=== PATIENT | female | born 1985 | race African-American/Black ===

== ENCOUNTER 2016-08-30 00:33 | Emergency (ER) | payer MEDICAID ==
[~2016-08-30] VITALS: Ht 160 cm; Wt 94.0 kg
[~2016-08-30 00:33] MED LIST: EC-N500T7 PO; METR-1 PO
[2016-08-30 00:36] VITALS: BP 139/81; PULSE 89; RESP 16; TEMP 98.4; O2SAT 100
== END 2016-08-30 01:37 | disposition left against medical advice (07) ==
LOC: NED 00:33
DX: R51 Headache (principal); W19.XXXA Unspecified fall, initial encounter
CPT/HCPCS: 99281

== ENCOUNTER 2016-09-26 03:26 | Emergency (ER) | payer MEDICAID ==
[~2016-09-26] VITALS: Ht 157.5 cm; Wt 94.0 kg
[2016-09-26 03:28] VITALS: BP 160/94; PULSE 85; RESP 16; TEMP 98.6; O2SAT 96
[2016-09-26] MEDS ORDERED: SODIUM CHLORIDE 0.9% FLUSH 5 ML FLUSH IVF PRN (04:15)
[2016-09-26 04:30] VITALS: O2SAT 96
[2016-09-26] MEDS: RESP: ALBUTEROL 2.5 MG/IPRATROPIUM 0.5 MG NEB (SCH) INH (04:30)
--- NOTE | 2016-09-26 04:53 | RADRPT ---
EXAM DATE/TIME: 09/26/2016 04:28 [facility] COMPARISON: CHEST PA & LAT, July 04, 2014, 12:55. INDICATIONS : Pt having shortness of breath. MEDICAL HISTORY : None. SURGICAL HISTORY : None. ENCOUNTER: Initial ACUITY: 1 day PAIN SCORE: 8/10 LOCATION: Bilateral chest FINDINGS: PA and lateral views of the chest demonstrate the lungs to be symmetrically aerated without evidence of mass, infiltrate or effusion. The cardiomediastinal contours are unremarkable. Osseous structure s are intact. CONCLUSION: No evidence of acute cardiopulmonary disease. Enmanuel Cortes MD on September 26, 2016 at 4:51 Board Certified Radiologist. This report was verified electronically.
--- NOTE | 2016-09-26 04:53 | RADRPT ---
EXAM DATE/TIME: 09/26/2016 04:29 [facility] COMPARISON: No previous studies available for comparison. INDICATIONS : Left leg pain. MEDICAL HISTORY : Hypertension. Migraine. Asthma. Diabetes. SURGICAL HISTORY : Appendectomy. Breast reduction. ENCOUNTER: Initial ACUITY: 1 day PAIN SCORE: 1/10 LOCATION: Left legs. TECHNIQUE: Venous ultrasound of the leg was performed from the inguinal ligament to the proximal calf. Real-rod e, color Doppler and spectral tracing, compression and augmentation techniques were used. FINDINGS: There is normal compressibility of the deep venous system from the inguinal region to the proximal ca lf. No echogenic clot is seen in the lumen of the common femoral, femoral, popliteal, and posterior tibial veins. There is a normal response of the venous system to proximal and distal augmentation an d respiration. CONCLUSION: No DVT of the left lower extremity. Enmanuel Cortes MD on September 26, 2016 at 4:52 Board Certified Radiologist. This report was verified electronically.
[2016-09-26 05:05] LABS: BASOPHIL # 0.1 TH/MM3 (0-0.2); BASOPHIL % 0.7 % (0.0-2.0); EOSINOPHIL # 0.4 TH/MM3 (0-0.4); EOSINOPHIL % 3.5 % (0.0-4.0); HEMATOCRIT 35.2 % (35.0-46.0); HEMO FLAGS DIFF FINAL; LYMPHOCYTE # 2.6 TH/MM3 (1.0-4.8); MEAN CELL VOLUME 84.4 FL (80.0-100.0); MEAN CORPUSCULAR HEMOGLOBIN 28.3 PG (27.0-34.0); MEAN CORPUSCULAR HGB CONC 33.6 % (32.0-36.0); MONO % 4.6 % (0.0-8.0); NEUT % 69.2 % (16.0-70.0); PLATELET COUNT 276 TH/MM3 (150-450); RED BLOOD COUNT 4.17 MIL/MM3 (4.00-5.30); WHITE BLOOD COUNT 11.6 TH/MM3 (4.0-11.0)
--- NOTE | 2016-09-26 05:05 | PD ---
HPI Chief Complaint: Cold / Flu Symptoms Time Seen by Provider: 04:55 Travel History International Travel<30 days: No Contact w/Intl Traveler<30days: No Traveled to known affect area: No History of Present Illness HPI 31-year-old black female presents to emergency department with a 2-3 day history of increasing shortness of breath and wheezing. She also states that she's noticed some increasing dyspnea on exertion and swelling in her left leg. She has had some subjective fever and chills at home, ear pain, sore throat, cough, no sputum production. Positive wheezing and shortness of breath. No nausea vomiting. No bowel pain or diarrhea. No urinary symptoms. PFSH Past Medical History Asthma: Yes Anxiety: Yes Cardiovascular Problems: Yes (HTN) Diabetes: Yes (CONTROLED WITH DIET) Diminished Hearing: No Hypertension: Yes Immunizations Current: Yes Migraines: Yes ?: Unknown LMP: 08/12/16 : 1 Para: 1 Miscarriage: 0 : 0 Past Surgical History Appendectomy: Yes Other Surgery: Yes (BREAST REDUCTION) Social History Alcohol Use: Yes (occasionally.) Tobacco Use: Yes (2-3 cigs.) Substance Use: No Allergies-Medications (Allergen,Severity, Reaction): Coded Allergies: No Known Allergies (Unverified , 09/26/16) Reported Meds & Prescriptions Reported Meds & Active Scripts Active Proventil Hfa 6.7 GM Inh (Albuterol Sulfate) 90 Mcg/Act Aer 2 Puff INH Q4-6H PRN Deltasone (Prednisone) 20 Mg Tab 20 Mg PO TID Zithromax (Azithromycin) 250 Mg Tab 250 Mg PO DIRECTED Take 2 tabs (500 mg) on day 1 then 1 tab daily x 4 days. Review of Systems General / Constitutional: Positive: Fever, Chills Eyes: No: Blurred Vision, Photophobia HENT: Positive: Headaches, Sore Throat, No: Neck Pain Cardiovascular: Positive: Chest Pain or Discomfort, Palpitations Respiratory: Positive: Cough, Shortness of Breath, Wheezing, Sneezing, Night Sweats Gastrointestinal: Positive: Vomiting, Diarrhea, Loss of Appetite Genitourinary: No: Dysuria, Nocturia Musculoskeletal: Positive: Arthralgias, Limited ROM, Edema Skin: No Rash Physical Exam Narrative GENERAL: Well-developed, well-nourished in no acute distress. Nontoxic appearing. HEAD: Normocephalic, atraumatic. EYES: Pupils equal round and reactive. Extraocular motions intact. No scleral icterus. No injection or drainage. ENT: TMs clear without erythema. The external auditory canals clear. Nose: clear . Posterior pharynx is pink and moist. No tonsillar edema or exudate. Uvula midline. Airway patent. NECK: Trachea midline.Supple, nontender, moves head freely. No central bony tenderness or spasm. CARDIOVASCULAR: Regular rate and rhythm without murmurs, gallops, or rubs. RESPIRATORY: Scattered rhonchi with decreased breath sounds and extra wheezes. GASTROINTESTINAL: Abdomen soft, non-tender, nondistended. No hepato-splenomegaly , or palpable masses. No guarding. EXTREMITIES: No clubbing, cyanosis, or edema. No joint tenderness, effusion, or edema noted. Patient complains of pain in the left calf but no Homans sign. There is no erythema, warmth or swelling compared to the opposite side. She complains of pain on the lateral aspect of the thigh and up into the hip. No medial pain. BACK: Nontender without deformity or crepitance. No flank tenderness. Data Data Last Documented VS Vital Signs Date Time Temp Pulse Resp B/P Pulse Ox O2 Delivery O2 Flow Rate FiO2 09/26/16 04:30 96 21 09/26/16 03:28 98.6 85 16 160/94 Room Air Orders Chest, Pa & Lat (09/26/16 04:03) Iv Access Insert/Monitor (09/26/16 04:03) Oximetry (09/26/16 04:03) Albuterol-Ipratropium Neb (Duoneb Neb) (09/26/16 04:15) Sodium Chloride 0.9% Flush (Ns Flush) (09/26/16 04:15) Us Leg Venous Doppler (09/26/16 04:03) Electrocardiogram (09/26/16 04:03) Complete Blood Count With Diff (09/26/16 04:03) Comprehensive Metabolic Panel (09/26/16 04:03) Prothrombin Time / Inr (Pt) (09/26/16 04:03) Act Partial Throm Time (Ptt) (09/26/16 04:03) Ed Urine Pregnancytest Poc (09/26/16 04:03) Methylprednisolone So Succ Inj (Solumedr (09/26/16 05:15) Azithromycin (Zithromax) (09/26/16 05:15) Labs Laboratory Tests Test 09/26/16 04:50 White Blood Count 11.6 TH/MM3 Red Blood Count 4.17 MIL/MM3 Hemoglobin 11.8 GM/DL Hematocrit 35.2 % Mean Corpuscular Volume 84.4 FL Mean Corpuscular Hemoglobin 28.3 PG Mean Corpuscular Hemoglobin 33.6 % Concent Red Cell Distribution Width 14.0 % Platelet Count 276 TH/MM3 Mean Platelet Volume 8.5 FL Neutrophils (%) (Auto) 69.2 % Lymphocytes (%) (Auto) 22.0 % Monocytes (%) (Auto) 4.6 % Eosinophils (%) (Auto) 3.5 % Basophils (%) (Auto) 0.7 % Neutrophils # (Auto) 8.0 TH/MM3 Lymphocytes # (Auto) 2.6 TH/MM3 Monocytes # (Auto) 0.5 TH/MM3 Eosinophils # (Auto) 0.4 TH/MM3 Basophils # (Auto) 0.1 TH/MM3 CBC Comment DIFF FINAL Differential Comment Prothrombin Time 10.3 SEC Prothromb Time International 0.9 RATIO Ratio Activated Partial 29.6 SEC Thromboplast Time Sodium Level 138 MEQ/L Potassium Level 3.5 MEQ/L Chloride Level 104 MEQ/L Carbon Dioxide Level 26.6 MEQ/L Anion Gap 7 MEQ/L Blood Urea Nitrogen 8 MG/DL Creatinine 0.82 MG/DL Estimat Glomerular Filtration 99 ML/MIN Rate Random Glucose 95 MG/DL Calcium Level 8.7 MG/DL Total Bilirubin 0.2 MG/DL Aspartate Amino Transf 12 U/L (AST/SGOT) Alanine Aminotransferase 12 U/L (ALT/SGPT) Alkaline Phosphatase 83 U/L Total Protein 8.0 GM/DL Albumin 3.5 GM/DL MDM Medical Decision Making Medical Screen Exam Complete: Yes Emergency Medical Condition: Yes Interpretation(s) CBC & BMP Diagram 09/26/16 04:50 Chest x-ray: No acute bony process. EKG: Sinus rhythm with a ventricular rate of 85. Occasional supraventricular complex. No abnormal ST-T wave changes. Ultrasound left lower extremity for DVT: Negative for DVT Differential Diagnosis MDM: High Differential diagnoses: Pneumonia, bronchitis, URI, asthma, RAD, legionnaire's disease, SARS, ARDS, influenza, bronchiolitis, RSV,PE,CHF Narrative Course X-ray is negative. Ultrasound: negative. IV access is obtained. Patient is given 2 DuoNeb times. She is reexamined and sounds significantly improved. She is feeling much improved. This is bronchitis with RAD, left leg pain Diagnosis Primary Impression: bronchitis with RAD Additional Impression: Left leg pain Patient Instructions: General Instructions Additional Instructions: Rest. Increase fluids. Tylenol and Advil. Robitussin-DM. Z-Alan, prednisone, and albuterol. Followup with your Dr. in one week. Return to the ER for any problems. Med/Other Pt SpecificInfo: Prescription(s) given Scripts Albuterol 6.7 GM Inh (Proventil Hfa 6.7 GM Inh)90 Mcg/Act Aer2 Puff INH Q4-6H PRN (SHORTNESS OF BREATH) #1 INHALER Prov:Pavithra Maya MD 09/26/16 Prednisone (Deltasone)20 Mg Tab20 Mg PO TID #15 TAB Prov:Pavithra Maya MD 09/26/16 Azithromycin (Zithromax)250 Mg [id number] Mg PO DIRECTED #6 TAB Take 2 tabs (500 mg) on day 1 then 1 tab daily x 4 days. Prov:Pavithra Maya MD 09/26/16 Disposition: 01 DISCHARGE HOME Condition: Stable Vel Barriga Sep 26, 2016 05:05
[2016-09-26] MEDS ORDERED: ZITH250T PO (05:07)
[2016-09-26] MEDS ORDERED: ALBU6.7H INH (05:07)
[2016-09-26] MEDS ORDERED: PRED-503 PO (05:07)
[2016-09-26] MEDS ORDERED: methylPREDNISolone SOD SUCC 125 MG/2 ML VIAL IVP ONE (05:15)
[2016-09-26] MEDS ORDERED: AZITHROMYCIN 250 MG TAB PO ONE (05:15)
[2016-09-26 05:18] LABS: APTT (PATIENT) 29.6 SEC (24.3-30.1); INTERNATIONAL NORMALIZED RATIO 0.9 RATIO; PROTHROMBIN TIME - PATIENT 10.3 SEC (9.8-11.6)
[2016-09-26 05:27] LABS: ALT (GPT) 12 U/L (10-53); ANION GAP 7 MEQ/L (5-15); AST (GOT) 12 U/L (15-37); BICARBONATE 26.6 MEQ/L (21.0-32.0); BLOOD UREA NITROGEN 8 MG/DL (7-18); CHLORIDE 104 MEQ/L (98-107); GLOMERULAR FILTRATION RATE 99 ML/MIN (>89); POTASSIUM 3.5 MEQ/L (3.5-5.1); SODIUM (NA) 138 MEQ/L (136-145)
[2016-09-26 05:29] LABS: ALKALINE PHOSPHATASE 83 U/L (45-117); TOTAL BILIRUBIN ADULT 0.2 MG/DL (0.2-1.0)
--- NOTE | 2016-09-27 12:32 | EKG ---
Date Performed: 09/26/2016 Time Performed: 04:50:48 PTAGE: 31 years EKG: Sinus rhythm WITH OCCASIONAL SUPRAVENTRICULAR PREMATURE COMPLEXES NONSPECIFIC T-WAVE ABNORMALITY Compared to prio r tracing no significant change BORDERLINE ECG PREVIOUS TRACING : 04/16/2016 19.25 DOCTOR: Herrera Street Interpretating Date/Time 09/27/2016 12:31:06
== END 2016-09-26 06:42 | disposition home or self-care (01) ==
LOC: NEPB 03:26
DX: J45.909 Unspecified asthma, uncomplicated (principal); F17.210 Nicotine dependence, cigarettes, uncomplicated; M79.605 Pain in left leg
CPT/HCPCS: 71020; 80053; 84703; 85025; 85610; 85730; 93005; 93971; 94640; 94664; 96374; 99284; J2930

== ENCOUNTER 2016-12-04 01:06 | Emergency (ER) | payer MEDICAID ==
[~2016-12-04] VITALS: Ht 160 cm; Wt 94.0 kg
[~2016-12-04 01:06] MED LIST changes: +ALBU6.7H INH; -EC-N500T7 PO; -METR-1 PO; +PRED-503 PO; +ZITH250T PO
[2016-12-04 01:17] VITALS: BP 138/86; PULSE 76; RESP 14; TEMP 98.3; O2SAT 100
== END 2016-12-04 03:28 | disposition left against medical advice (07) ==
LOC: NEPK 01:06
DX: R51 Headache (principal)
CPT/HCPCS: 99281

== ENCOUNTER 2016-12-04 22:08 | Emergency (ER) | payer MEDICAID ==
[~2016-12-04] VITALS: Ht 162.6 cm; Wt 93.0 kg
[2016-12-04 22:10] VITALS: BP 141/85; PULSE 81; RESP 16; TEMP 97.8; O2SAT 100
[2016-12-04] MEDS ORDERED: ONDANSETRON ODT 4 MG TAB PO ONE (23:00)
--- NOTE | 2016-12-04 23:25 | PD ---
HPI Chief Complaint: Related Problem Time Seen by Provider: 22:27 Travel History International Travel<30 days: No Contact w/Intl Traveler<30days: No Traveled to known affect area: No History of Present Illness HPI 31-year-old female 3 para 1 (1 prior ) arrives requesting 48 hour repeat beta hCG. She had vaginal bleeding prompting ER visit in [place]. She does not know what the beta hCG was however reports the doctor told her she was approximately 5 weeks . She's had vaginal bleeding or discharge since. She has no urinary complaint. No nausea vomiting diarrhea or fever. She does report gassy abdominal pain, epigastric location which tends to migrate to pelvic distribution. PFSH Past Medical History Asthma: Yes Anxiety: Yes Cardiovascular Problems: Yes (HTN) Diabetes: Yes (CONTROLED WITH DIET) Patient Takes Glucophage: No Diminished Hearing: No Hypertension: Yes Immunizations Current: Yes Migraines: Yes ?: LMP: 3-24-17 : 1 Para: 1 Miscarriage: 0 : 0 Past Surgical History Appendectomy: Yes Other Surgery: Yes (BREAST REDUCTION) Social History Alcohol Use: Yes (occasionally.) Tobacco Use: Yes (2-3 cigs.) Substance Use: No Allergies-Medications (Allergen,Severity, Reaction): Coded Allergies: No Known Allergies (Unverified , 12/04/16) Reported Meds & Prescriptions Reported Meds & Active Scripts Active Proventil Hfa 6.7 GM Inh (Albuterol Sulfate) 90 Mcg/Act Aer 2 Puff INH Q4-6H PRN Deltasone (Prednisone) 20 Mg Tab 20 Mg PO TID Review of Systems Except as stated in HPI: all other systems reviewed are Neg General / Constitutional: No: Fever, Chills Genitourinary: No: Discharge, Vaginal Bleeding Physical Exam Narrative GENERAL: 31 yo F, WNWD, NAD SKIN: Warm and dry. HEAD: Atraumatic. Normocephalic. EYES: Pupils equal and round. No scleral icterus. No injection or drainage. ENT: No nasal bleeding or discharge. Mucous membranes pink and moist. NECK: Trachea midline. No JVD. CARDIOVASCULAR: Regular rate and rhythm. RESPIRATORY: No accessory muscle use. Clear to auscultation. Breath sounds equal bilaterally. GASTROINTESTINAL: Abdomen soft, non-tender, nondistended. Hepatic and splenic margins not palpable. MUSCULOSKELETAL: Extremities without clubbing, cyanosis, or edema. No obvious deformities. NEUROLOGICAL: Awake and alert. No obvious cranial nerve deficits. Motor grossly within normal limits. Five out of 5 muscle strength in the arms and legs. Normal speech. PSYCHIATRIC: Appropriate mood and affect; insight and judgment normal. Data Data Last Documented VS Vital Signs Date Time Temp Pulse Resp B/P Pulse Ox O2 Delivery O2 Flow Rate FiO2 12/04/16 22:24 18 12/04/16 22:10 97.8 81 141/85 100 Room Air VS reviewed Orders Beta Hcg (Quant/Titer) (12/04/16 22:32) Ed Urine Pregnancytest Poc (12/04/16 22:32) Ed Poc Ultrasound (12/04/16 22:32) Ondansetron Odt (Zofran Odt) (12/04/16 23:00) Us Pelvis (Ques Pr/Ect)W Trans (12/05/16 ) Labs Laboratory Tests Test 12/04/16 22:45 Human Chorionic Gonadotropin, 1784 MIU/ML Quant MDM Medical Decision Making Medical Screen Exam Complete: Yes Emergency Medical Condition: Yes Differential Diagnosis Threatened , IUP, ectopic Narrative Course OSH reports beta HCG of 1414 on 12/02 at approximately 10:50 PM. Repeat beta is 1784, less than expected a finding concerning for miscarriage. Blood type is O+. OSH US report reveals no IUP. My bedside US was nonspecific. ED US ordered. US: IUP, R ov cyst F/u Dr Antony [facility] Diagnosis Primary Impression: Threatened miscarriage Referrals: Enmanuel Almonte MD 2 days Additional Instructions: You have a choice when it comes to health care, and we are glad that you chose [facility]. Hopefully, we have met your expectations on today's visit. You are welcome to return to [facility] at any time, as we are committed to meeting the health care needs of our community. Med/Other Pt SpecificInfo: No Change to Meds Disposition: 01 DISCHARGE HOME Condition: Wilver Mills MD Dec 04, 2016 23:25
[2016-12-05 00:10] LABS: BETA HCG QUANT 1784 MIU/ML (0-5)
--- NOTE | 2016-12-05 02:37 | RADRPT ---
EXAM DATE/TIME: 12/05/2016 01:06 [facility] COMPARISON: No previous studies available for comparison. INDICATIONS : Pelvic pain. LAB(S): Beta-hC MEDICAL HISTORY : Hypertension. Asthma. Diabetes. SURGICAL HISTORY : Appendectomy. Breast reduction. ENCOUNTER: Initial ACUITY: 1 day PAIN SCORE: 5/10 LOCATION: Bilateral pelvis MEASUREMENTS: UTERUS: 7.7 x 4.8 x 6.3 cm ENDOMETRIAL STRIPE: 14 mm RIGHT OVARY: 3.8 x 2.7 x 2.1 cm LEFT OVARY: 3.2 x 1.9 x 1.5 cm FREE FLUID: Yes POST CUL DE SAC CROWN RUMP LENGTH: N/A = WKS DAYS FHR: N/A BPM FINDINGS: UTERUS: A small cystic structure consistent with a gestational sac is observed within the body. Mean sac diam eter 0.54 cm which is below the threshold for accurate gestational age. No yolk sac or pole is currently seen. RIGHT OVARY: A thick walled cyst is seen involving the right ovary. This measures 18 mm in diameter. No hyperemia. LEFT OVARY: Ovary contains no mass or significant cystic lesion. MISCELLANEOUS: Trace amount of free fluid. CONCLUSION: 1. Solitary intrauterine gestation. Mean sac diameter is below the threshold for accurate gestational age depiction with ultrasound. 2. 18 mm corpus luteal cyst involving the right ovary. 3. Small amount of free fluid. Shola Márquez Jr., MD on December 05, 2016 at 2:33 Board Certified Radiologist. This report was verified electronically.
[2016-12-05 03:27] VITALS: BP 130/76; TEMP 98.1
== END 2016-12-05 03:35 | disposition home or self-care (01) ==
LOC: NEPC 22:08
DX: O20.0 Threatened abortion (principal); O99.331 Smoking (tobacco) complicating pregnancy, first trimester; F17.210 Nicotine dependence, cigarettes, uncomplicated; O24.811 Other pre-existing diabetes mellitus in pregnancy, first trimester; E13.8 Other specified diabetes mellitus with unspecified complications; O10.911 Unspecified pre-existing hypertension complicating pregnancy, first trimester; O99.511 Diseases of the respiratory system complicating pregnancy, first trimester; Z3A.01 Less than 8 weeks gestation of pregnancy; J45.909 Unspecified asthma, uncomplicated
CPT/HCPCS: 76700; 76817; 84702; 84703

== ENCOUNTER 2017-02-12 02:04 | Emergency (ER) | payer MEDICAID ==
[~2017-02-12] VITALS: Ht 162.6 cm; Wt 102.0 kg
[~2017-02-12 02:04] MED LIST changes: -ZITH250T PO
[2017-02-12 02:06] VITALS: BP 130/63; PULSE 98; TEMP 98.1; O2SAT 98
--- NOTE | 2017-02-12 02:55 | PD ---
HPI Chief Complaint: Abdominal Pain Time Seen by Provider: 02:44 Travel History International Travel<30 days: No Contact w/Intl Traveler<30days: No Traveled to known affect area: No History of Present Illness HPI 31-year-old female presents to the emergency department for complaint of 3 days of left-sided abdominal and pelvic pain. Patient denies injury. Patient has noted increased discomfort with urination. Patient reports she is 14 weeks . Last menstrual period was October 2016. Patient has had ultrasound which shows single intrauterine . Patient is 3 para 1 AB 1. Patient's last was an ectopic. Patient denies vaginal bleeding or abnormal vaginal discharge or fluid leak. Patient's had no fever or chills. Patient has taken no medications for symptoms or pain. Patient reports she called her [employer] 2 hours prior to coming to the emergency department as referred to the emergency department for evaluation. Patient states that she is concerned because she stands to work and she has not worked for the past 3 days and has continued to have the pain. [facility] Past Medical History Narrative Medical Asthma anxiety heart murmur diet controlled diabetes hypertension migraines appendectomy breast reduction ectopic occasional alcohol use no tobacco use; nursing notes reviewed Asthma: Yes Anxiety: Yes Cardiovascular Problems: Yes (MURMUR) Diabetes: Yes (CONTROLED WITH DIET) Patient Takes Glucophage: No Diminished Hearing: No Hypertension: Yes Immunizations Current: Yes Migraines: Yes ?: : 1 Para: 1 Miscarriage: 0 : 0 Past Surgical History Appendectomy: Yes Other Surgery: Yes (BREAST REDUCTION) Social History Alcohol Use: Yes (occasionally.) Tobacco Use: No (2-3 cigs.) Substance Use: No Allergies-Medications (Allergen,Severity, Reaction): Coded Allergies: No Known Allergies (Unverified , 02/12/17) Reported Meds & Prescriptions Reported Meds & Active Scripts Active Proventil Hfa 6.7 GM Inh (Albuterol Sulfate) 90 Mcg/Act Aer 2 Puff INH Q4-6H PRN Deltasone (Prednisone) 20 Mg Tab 20 Mg PO TID Review of Systems Except as stated in HPI: all other systems reviewed are Neg General / Constitutional: No: Fever, Chills HENT: No: Congestion Cardiovascular: No: Chest Pain or Discomfort Respiratory: No: Shortness of Breath Gastrointestinal: Positive: Abdominal Pain, No: Vomiting Genitourinary: Positive: Urgency, Frequency, Dysuria, Pelvic Pain, No: Flank Pain, Discharge, Vaginal Bleeding Musculoskeletal: No: Myalgias, Arthralgias Skin: No Rash Neurologic: No: Weakness Psychiatric: No: Anxiety Endocrine: No: Heat Intolerance Physical Exam Narrative GENERAL: Well-developed well-nourished female in no acute distress no respiratory distress SKIN: Warm and dry. HEAD: Normocephalic. EYES: No scleral icterus. No injection or drainage. NECK: Supple, trachea midline. No JVD or lymphadenopathy. CARDIOVASCULAR: Regular rate and rhythm without murmurs, gallops, or rubs. RESPIRATORY: Breath sounds equal bilaterally. No accessory muscle use. GASTROINTESTINAL: Abdomen soft, obese, mild tenderness to direct palpation along the left abdominal wall without guarding or rebound, nondistended. Pelvic exam: Normal external exam no redness induration or lesions; bimanual exam cervix is long and thin and os is closed. No blood on exam glove. Nontender exam. MUSCULOSKELETAL: No cyanosis, or edema. BACK: Nontender without obvious deformity. No CVA tenderness. Data Data Last Documented VS Vital Signs Date Time Temp Pulse Resp B/P Pulse Ox O2 Delivery O2 Flow Rate FiO2 02/12/17 02:06 98.1 98 130/63 98 Orders Urinalysis - C+S If Indicated (02/12/17 02:44) Acetaminophen (Tylenol) (02/12/17 03:45) Labs Laboratory Tests Test 02/12/17 03:02 Urine Color YELLOW Urine Turbidity HAZY Urine pH 6.0 Urine Specific [place] 1.038 Urine Protein 30 mg/dL Urine Glucose (UA) NEG mg/dL Urine Ketones TRACE mg/dL Urine Occult Blood NEG Urine Nitrite NEG Urine Bilirubin NEG Urine Urobilinogen 2.0 MG/DL Urine Leukocyte Esterase SMALL Urine RBC 2 /hpf Urine WBC 4 /hpf Urine Squamous Epithelial 18 /hpf Cells Urine Renal Epithelial Cells <1 /hpf Urine Mucus MOD /lpf Microscopic Urinalysis Comment CULT NOT INDICATED MDM Medical Decision Making Medical Screen Exam Complete: Yes Emergency Medical Condition: Yes Medical Record Reviewed: Yes Interpretation(s) UA: elevated SG 1.038 Differential Diagnosis Dysuria, UTI, pyelonephritis, renal colic, threatened spontaneous AB Narrative Course Urine specimen collected and sent for resulting Urinalysis normal except for elevated specific gravity of 1.038; bedside ultrasound performed by la after consent given by patient with curvilinear probe suprapubic location using longitudinal and transverse views intrauterine with active fetus heart rate 152 Patient's abdomen is nontender at this time pelvic exam with mild tenderness in the left vaginal wall suspicious for broad ligament pain there is no bleeding cervical os is closed exam is otherwise nontender. 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 Diagnosis Primary Impression: Broad ligament pain Additional Impressions: Dehydration Qualified Code: Z3A.14 - 14 weeks gestation of Referrals: Director Of Event Management 2 days Patient Instructions: General Instructions Departure Forms: Tests/Procedures, Work Release Special Instructions: no work x 2 days Additional Instructions: May take acetaminophen/Tylenol as often as every 4-6 hours as needed for minor to moderate pain or for fever 100.4F or greater Increase fluid hydration Follow-up with bottom precipitator operator on Tuesday call office to schedule follow-up appointment Return to the emergency department for any concerns pain fever or vaginal bleeding or spotting. No work 2 days. Disposition: 01 DISCHARGE HOME Condition: Stable Mary Ann Cornell MD Feb 12, 2017 02:54
[2017-02-12 03:25] LABS: BLOOD, URINE NEG (NEG); GLUCOSE,URINE NEG (NEG); KETONE, URINE TRACE mg/dL (NEG); MUCUS URINE MOD /lpf (OCC); NITRITE,URINE NEG (NEG); RENAL EPITHELIAL CELLS <1 /hpf; SQUAMOUS EPITHELIAL CELL URINE 18 /hpf (0-5); URINE COLOR YELLOW (YELLW/STRAW)
[2017-02-12 03:26] LABS: COMMENT (UR) CULT NOT INDICATED; CULTURE IF INDICATED CULT NOT INDICATED
[2017-02-12] MEDS ORDERED: ACETAMINOPHEN 325 MG TAB PO ONE (03:45)
== END 2017-02-12 04:21 | disposition home or self-care (01) ==
LOC: NEPC 02:04
DX: O26.892 Other specified pregnancy related conditions, second trimester (principal); R10.2 Pelvic and perineal pain; E86.0 Dehydration; O24.912 Unspecified diabetes mellitus in pregnancy, second trimester; O16.2 Unspecified maternal hypertension, second trimester; Z87.09 Personal history of other diseases of the respiratory system; Z86.59 Personal history of other mental and behavioral disorders; Z86.79 Personal history of other diseases of the circulatory system; Z3A.14 14 weeks gestation of pregnancy
CPT/HCPCS: 81001; 99284

== ENCOUNTER → 2017-03-09 | Outpatient (CLI) | payer MEDICAID | LOC: HPND 10:23 | PROVIDERS: ATTEND Obstetrics & Gynecology | DX: O99.212 Obesity complicating pregnancy, second trimester (principal); O10.012 Pre-existing essential hypertension complicating pregnancy, second trimester; Z3A.18 18 weeks gestation of pregnancy | CPT/HCPCS: 76811 ==

== ENCOUNTER → 2017-04-07 | Outpatient (CLI) | payer MEDICAID | LOC: HPND 12:40 | PROVIDERS: ATTEND Obstetrics & Gynecology | DX: O09.212 Supervision of pregnancy with history of pre-term labor, second trimester (principal); O10.912 Unspecified pre-existing hypertension complicating pregnancy, second trimester; Z3A.00 Weeks of gestation of pregnancy not specified | CPT/HCPCS: 76816 ==

== ENCOUNTER → 2017-05-09 | Outpatient (CLI) | payer MEDICAID | LOC: HPND 08:29 | PROVIDERS: ATTEND Obstetrics & Gynecology | DX: O24.410 Gestational diabetes mellitus in pregnancy, diet controlled (principal); O10.912 Unspecified pre-existing hypertension complicating pregnancy, second trimester; O99.212 Obesity complicating pregnancy, second trimester; E66.01 Morbid (severe) obesity due to excess calories; Z68.41 Body mass index [BMI] 40.0-44.9, adult; Z3A.27 27 weeks gestation of pregnancy | CPT/HCPCS: 76816 ==

== ENCOUNTER → 2017-06-07 | Outpatient (CLI) | payer MEDICAID | LOC: HPND 08:10 | PROVIDERS: ATTEND Obstetrics & Gynecology | DX: O24.410 Gestational diabetes mellitus in pregnancy, diet controlled (principal); O10.013 Pre-existing essential hypertension complicating pregnancy, third trimester; O99.213 Obesity complicating pregnancy, third trimester; E66.01 Morbid (severe) obesity due to excess calories; Z68.41 Body mass index [BMI] 40.0-44.9, adult | CPT/HCPCS: 76816 ==